=== PATIENT | male | born 1995 | race Caucasian/White ===

== ENCOUNTER 2018-01-27 09:37 | Day surgery (SDC) | payer OTHER ==
[~2018-01-27 09:37] MED LIST: Buffered Lidocaine 0.9% SYRIN* 5 ML/SYR SYRINGE INTRADERM ONE; Dexamethasone IV* 4 MG/ML 1 ML (4 MG) IV SLOW PU ONE; Famotidine IV* 10 MG/ML 2 ML (20 mg) IV ONE; Lactated Ringers 1000 ML Bag* 1,000 ML IV SCH
[2018-01-27] MEDS ORDERED: Famotidine IV* 10 MG/ML 2 ML (20 mg) ONE (09:51)
[2018-01-27] MEDS ORDERED: ceFAZolin 2 GM PREMIX in ORs 2 GM/50 ML BAG IVPB ONE (09:51)
[2018-01-27] MEDS ORDERED: Dexamethasone IV* 4 MG/ML 1 ML (4 MG) ONE (09:51)
[2018-01-27] MEDS ORDERED: Propofol* 10 MG/ML 20 ML BTL ONE (12:08)
[2018-01-27] MEDS ORDERED: Ketorolac INJ* 30 MG/ML 1 ML VIAL ONE (12:08)
[2018-01-27] MEDS ORDERED: Midazolam* 1 MG/ML 2 ML VIAL (2 MG) ONE (12:08)
[2018-01-27] MEDS ORDERED: Lidocaine 2% PF * 5 ML VIAL ONE (12:08)
[2018-01-27] MEDS ORDERED: fentaNYL* 50 MCG/ML 2 ML VIAL (100 MCG VIAL) ONE (12:08)
[2018-01-27] MEDS ORDERED: Bupivacaine 0.25% SDV PF* 10 ML VIAL INJ ONE (12:17)
[2018-01-27] MEDS ORDERED: DiMENhydriNATE IV* 50 MG/ML VIAL IV PUSH PRN (12:18)
[2018-01-27] MEDS ORDERED: Naloxone* 0.4 MG/ML 1 ML VIAL IV PRN (12:18)
[2018-01-27] MEDS ORDERED: oxyCODONE/Acetamin 5/325 MG* TAB PO PRN (12:18)
[2018-01-27] MEDS ORDERED: HYDROcodone/ACETAMIN 5-325 MG* 1 TAB PO PRN (12:18)
[2018-01-27] MEDS ORDERED: fentaNYL* 50 MCG/ML 2 ML VIAL (100 MCG VIAL) IV PRN (12:18)
[2018-01-27] MEDS ORDERED: Ondansetron INJ* 2 MG/ML VIAL ONE (13:27)
[2018-01-27] MEDS ORDERED: oxyCODONE/Acetamin 5/325 MG* TAB ONE (14:21)
[2018-01-27 15:04] VITALS: BP 128/71
--- NOTE | 2018-01-27 23:33 | OP ---
DATE OF OPERATION: 01/27/18 [facility] DATE OF : 89 SURGEON: Dr. Mauro Tejeda. MOTION PICTURE PHOTOGRAPHER: ILAN Vickers. An certified surgical tech/first assistant was needed for the entirety of the procedure to aid in positioning of the arm and retraction. ANESTHESIOLOGIST: Dr. Palomino. ANESTHESIA: General. PRE-OP DIAGNOSES: 1. Right hand fifth metacarpal base intra-articular displaced baby Orr fracture. 2. Right ulnar hamate nonunion. POST-OP DIAGNOSES: 1. Right hand fifth metacarpal base intra-articular displaced baby Orr fracture. 2. Right ulnar hamate nonunion. OPERATIVE PROCEDURE: 1. Open reduction and internal fixation, right fifth metacarpal intra- articular base fracture. 2. Excision of right hamate nonunion fragment. INDICATIONS: Jeet had the fracture. He had it worked up by an x-ray and CT at another provider who then sent him over to see me given the level of displacement. It was a little more than 3 mm stepped off and I thought the joint would do better if we aligned it anatomically. I told him the fixation would be with pins as it was not a good location to put a screw across it. He understood and he wanted to proceed. He understands the risk of a pin tract infection and the risk of stiffness as well as extensor tendon adhesions. ESTIMATED BLOOD LOSS: 2 mL. COMPLICATIONS: None. FINDINGS: See above and below. DESCRIPTION OF PROCEDURE: Jeet was seen in the preoperative holding area. The correct side, site, and procedure were identified. We came back to the operating room and the arm was prepped and draped in the usual fashion and a time-out was performed. The arm was exsanguinated with the Esmarch and the tourniquet was inflated to 250 mmHg. I began by making a lazy-S incision over the dorsal ulnar aspect of the hand centered over the fifth MCP joint. Dissection was carried down and the traversing ulnar sensory nerve was retracted gently radially. The fifth dorsal compartment tendons were retracted ulnarly. I then opened the capsule over the fifth MCP joint longitudinally to expose both the fracture as well as the nonunion fragment. It was a large fragment, about 1 cm long by 0.5 cm in width. It was frankly mobile and not contributing at all to the stability of the carpus or the CMC joint. I therefore took my 15 blade and ellipsed out the fragment and handed it off. Next, I turned my attention to the joint. I debrided back the fracture hematoma and soft callus that were forming in the area of the fracture to expose the fracture. The fracture was booked open so as to be able to use a small curet and suction as well as the dental pick to debride all of the soft tissue and get back to nice, clean fracture edges. I then was able to apply traction on the fifth ray as well as provide a radial directed force while using the dental pick to reduce the fracture. I then first took a 0.062 K-wire and placed a percutaneous pin through the ulnar aspect in the metacarpal base and down into the hamate. I then placed two 0.045 K- wires through the metacarpal base across the fragment and into the base of the fourth metacarpal. Lastly, I took a 0.062 K-wire and pinned the metaphysis of the fifth metacarpal to the metaphysis of the fourth metacarpal, grabbing 4 cortices. At this point, everything was nice and stable. The fracture was very nicely reduced. I could look directly at it and see that it was very nicely reduced at the joint line. I got final fluoroscopic imaging, which confirmed the placement of the pins and the alignment of the fracture. I irrigated out the wound copiously. The capsule was closed with 4-0 Prolene suture. The skin was closed with 4-0 Monocryl suture and Steri-Strips. Marcaine was infiltrated all about the operative area. The pin sites were dressed with Xeroform and 4x4s and well padded and then an ulnar gutter splint was applied. Tourniquet was deflated and he was taken to the recovery room in stable condition. [id number] #: [id number] MTDD
== END 2018-01-27 15:04 | disposition home or self-care (01) ==
LOC: OREAST 09:37
PROVIDERS: ATTEND Orthopaedic Surgery Hand Surgery
DX: S62.316A Displaced fracture of base of fifth metacarpal bone, right hand, initial encounter for closed fracture (principal); S62.141A Displaced fracture of body of hamate [unciform] bone, right wrist, initial encounter for closed fracture; Y04.0XXA Assault by unarmed brawl or fight, initial encounter; Y92.9 Unspecified place or not applicable
CPT/HCPCS: 76000; A9270-GY; C1776; J0690; J1100; J1885; J2250; J2405; J2704; J3010; J3490